=== PATIENT | male | born 1960 | race Caucasian/White ===

== ENCOUNTER 2020-09-08 10:14 | Outpatient (CLI) | payer OTHER, SELFPAY ==
[2020-09-08 11:27] LABS: Alanine Aminotransferase 14 U/L (4-50); Albumin Level 3.6 g/dL (3.5-5.1); Alkaline Phosphatase 53 U/L (38-126); Anion Gap 0 mmol/L (8-16); Aspartate Amino Transferase 25 U/L (17-59); Bilirubin,Total 0.5 mg/dL (0.2-1.3); Blood Urea Nitrogen 15 mg/dL (9-20); Calcium 8.4 mg/dL (8.4-10.2); Carbon Dioxide 32 mmol/L (22-30); Chloride 104 mmol/L (98-107); Cholesterol 168 mg/dL (0-200); Estimated Glomerular Filt Rate > 60; Glucose 89 mg/dL (75-110); HDL Direct 55 mg/dL; Potassium 4.5 mmol/L (3.4-5.0); Sodium 136 mmol/L (137-145); Triglycerides 77 mg/dL (<150)
[2020-09-08 11:39] LABS: LDL Cholesterol Direct 86 mg/dL
[2020-09-08 11:53] LABS: Free T4 Free Thyroxine 0.85 ng/mL (0.78-2.19)
[2020-09-08 11:58] LABS: Prostate Specific Antigen < 0.1 ng/mL (< OR = 4.0)
== END 2020-09-08 10:15 | disposition home or self-care (01) ==
PROVIDERS: PCP Family Medicine; Visit Provider Physician Assistant Medical
DX: E27.40 Unspecified adrenocortical insufficiency (principal); E03.9 Hypothyroidism, unspecified; Z13.220 Encounter for screening for lipoid disorders; Z12.5 Encounter for screening for malignant neoplasm of prostate
CPT/HCPCS: 36415; 80053; 80061; 84153; 84439; 84443; G0103

== ENCOUNTER 2021-03-19 14:23 | Outpatient (CLI) | payer OTHER, SELFPAY ==
[2021-03-19 15:07] LABS: Anion Gap -1 mmol/L (8-16); Blood Urea Nitrogen 22 mg/dL (9-20); Calcium 8.8 mg/dL (8.4-10.2); Carbon Dioxide 34 mmol/L (22-30); Chloride 104 mmol/L (98-107); Estimated Glomerular Filt Rate > 60; Glucose 77 mg/dL (75-110); Potassium 4.1 mmol/L (3.4-5.0); Sodium 137 mmol/L (137-145)
[2021-03-19 17:02] LABS: Free T4 Free Thyroxine 0.91 ng/mL (0.78-2.19)
== END 2021-03-19 14:24 | disposition home or self-care (01) ==
LOC: ANHLAB 14:25
PROVIDERS: PCP Family Medicine; Visit Provider Internal Medicine Endocrinology, Diabetes & Metabolism
DX: E03.9 Hypothyroidism, unspecified (principal); E27.40 Unspecified adrenocortical insufficiency
CPT/HCPCS: 36415; 80048; 84439; 84443

== ENCOUNTER 2021-06-08 20:36 | Emergency (ER) | payer OTHER, SELFPAY ==
[2021-06-08 20:47] VITALS: BP 150/86; PULSE 81; RESP 20; TEMP 37.1; O2SAT 99
--- NOTE | 2021-06-08 21:42 | PC.NURSE ---
Pt to desk stating he no longer wishes to be seen. Pt walked from department with a steady gait.
== END 2021-06-08 21:42 | disposition left against medical advice (07) ==
LOC: ANHED 21:52
DX: T63.301A Toxic effect of unspecified spider venom, accidental (unintentional), initial encounter (principal)
CPT/HCPCS: 99199

== ENCOUNTER 2022-05-25 11:04 | Outpatient (CLI) | payer OTHER, SELFPAY ==
--- NOTE | ~2022-05-25 | XR_ITS ---
EXAMINATION: XR chest 2V 05/25/2022 11:21 INDICATION: Cough PROCEDURE: 2 view chest COMPARISON: 03/03/2017 FINDINGS: The lungs are clear. The cardiomediastinal silhouette is within normal limits. There are no pleural effusions. There is no pneumothorax suspected. IMPRESSION: 1: NO ACUTE CARDIOPULMONARY DISEASE. Reviewed, dictated and finalized at location A.
[2022-05-25 11:42] LABS: Alanine Aminotransferase 25 U/L (6-50); Albumin Level 3.9 g/dL (3.5-5.1); Alkaline Phosphatase 53 U/L (38-126); Anion Gap 2 mmol/L (8-16); Aspartate Amino Transferase 26 U/L (17-59); Bilirubin,Total 0.5 mg/dL (0.2-1.3); Blood Urea Nitrogen 20 mg/dL (9-20); Carbon Dioxide 30 mmol/L (22-30); Chloride 105 mmol/L (98-107); Cholesterol 161 mg/dL (0-200); Estimated Glomerular Filt Rate > 60; Glucose 87 mg/dL (65-110); HDL Direct 52 mg/dL; Potassium 4.2 mmol/L (3.4-5.0); Sodium 137 mmol/L (137-145); Triglycerides 55 mg/dL (<150)
[2022-05-25 11:53] LABS: LDL Cholesterol Direct 71 mg/dL
[2022-05-25 12:23] LABS: Free T4 Free Thyroxine 0.99 ng/mL (0.78-2.19); Vitamin D 25 Hydroxy 53.4 ng/mL
[2022-05-25 21:29] LABS: Prostate Specific Antigen < 0.1 ng/mL (< OR = 4.0)
== END 2022-05-25 11:05 | disposition home or self-care (01) ==
LOC: ANHLAB 11:06
PROVIDERS: PCP Family Medicine; Visit Provider Nurse Practitioner Family
DX: E56.9 Vitamin deficiency, unspecified (principal); E03.9 Hypothyroidism, unspecified; E27.40 Unspecified adrenocortical insufficiency; E83.119 Hemochromatosis, unspecified; Z13.220 Encounter for screening for lipoid disorders; Z12.5 Encounter for screening for malignant neoplasm of prostate; R05.9 Cough, unspecified
CPT/HCPCS: 36415; 71046; 80053; 80061; 82306; 84153; 84439; 84443; G0103

== ENCOUNTER 2022-07-05 09:16 | Outpatient (CLI) | payer OTHER, SELFPAY ==
[2022-07-05 09:38] LABS: Calcium 8.7 mg/dL (8.4-10.2)
[2022-07-05 10:09] LABS: Cortisol Random 0.16 ug/dL
[2022-07-08 21:17] LABS: Adrenocorticotropic Hormone <5 pg/mL (6-50)
== END 2022-07-05 09:17 | disposition home or self-care (01) ==
LOC: ANHLAB 09:17
PROVIDERS: Internal Medicine Endocrinology, Diabetes & Metabolism; PCP Family Medicine; Visit Provider Nurse Practitioner Family
DX: E03.9 Hypothyroidism, unspecified (principal); E83.51 Hypocalcemia
CPT/HCPCS: 36415; 82024; 82310; 82533

== ENCOUNTER 2022-09-16 18:33 | Emergency (ER) | payer OTHER, SELFPAY ==
[2022-09-16 18:45] VITALS: BP 112/75; PULSE 64; RESP 16; TEMP 37; O2SAT 97
[2022-09-16] MEDS: TETANUS,DIPHTHERIA,AC PERTUSSIS ADULT 0.5 ML (ADACEL) IM (19:10)
[2022-09-16] MEDS: LIDOCAINE HCL 1% LOCAL INJ 10 ML VIAL INFILTRATE (19:10)
--- NOTE | 2022-09-16 19:35 | ED.WOUNDLAC ---
HPI - Wound/Laceration General Chief Complaint: Wound/Laceration Stated Complaint: right knee injury Time Seen by Provider: 09/16/22 18:37 Source: patient and family Mode of arrival: ambulatory History of Present Illness HPI narrative: this is a 62-year-old gentleman that presents after he was working on deck and hit his right knee on a piece of board causing a gaping laceration about 3.5cm to his anterior right leg some minimal bleeding, the patient does have history of hemochromatosis. Otherwise has good range of motion no numbness or tingling. Onset (ago): hour(s) Extremity Location: Right: lower leg ( 3.5cm laceration gaping) Place: outdoors Patient tetanus UTD: No Context: accidental Related Data Home Medications Medication Instructions Recorded Confirmed omega-3 fatty acids 1,000 mg 1,000 mg PO DAILY 09/25/20 05/31/22 capsule (Fish Oil Concentrate) ascorbic acid (vitamin C) 500 mg 500 mg PO DAILY PRN 05/31/22 05/31/22 tablet,extended release Allergies Allergy/AdvReac Type Severity Reaction Status Date / Time No Known Allergies Allergy Mild Verified 05/31/22 11:23 Review of Systems Review of Systems: All systems reviewed & are unremarkable except as noted in HPI and below PMFSH Past Medical History Medical History BMI 26.0-26.9,adult Family History Family History Mother Hypertension Family history of type 2 diabetes mellitus Rheumatoid arthritis Father Family history of cardiovascular disease Family history of lung cancer Sibling Hypertension Thyroid activity decreased Social History Social History Smoking status: Never smoker Second hand tobacco smoke exposure: No Alcohol intake: current Substance use: current Substance use type: marijuana Additional occupation/education comments: [employer] Gender identity (if verbalized by the patient): Male Exam Const: General: healthy appearing, no acute distress and alert Nutritional Appearance: well nourished Limitations: no limitations HENMT: Head: normal to inspection Face/Nose/Sinus: Normal external nose present Eyes: Conjunctivae: conjunctivae normal EOM: EOMs intact bilaterally Direct Ophthalmoscopy: no photophobia Neck: Neck: normal visual inspection Chest: Chest palpation & inspection: normal inspection of the chest Resp: Effort & Inspection: normal respiratory effort Auscultation: clear to auscultation bilaterally Cardio: Rate: regular rate Rhythm: regular rhythm GI: GI Palp: Yes Soft to palpation Auscultation: normal bowel sounds Urinary Catheter: Urinary Catheter: patent and draining Back/Spine/Pelvis: Back: no CVA tenderness Skin: General skin exam: normal color Wounds: wounds noted Neuro: General: patient oriented x3 Cranial nerves: Yes Nystagmus not present Extrem: General: normal to inspection Psych: Mental Status: mental status grossly normal Affect: normal affect Course Course Emergency Course: Five sutures were placed anterior right knee laceration patient tolerated procedure well patient with a history of hemochromatosis and will give a dose of Augmentin and updated patient with his tetanus. Vital Signs Vital signs: Vital Signs Temperature 37.0 C 09/16/22 18:45 Pulse Rate 64 09/16/22 18:45 Respiratory Rate 16 09/16/22 18:45 Blood Pressure 112/75 09/16/22 18:45 Pulse Oximetry 97 09/16/22 18:45 Oxygen Delivery Room Air 09/16/22 18:45 Temperature 37.0 C 09/16/22 18:45 Pulse Rate 64 09/16/22 18:45 Respiratory Rate 16 09/16/22 18:45 Blood Pressure 112/75 09/16/22 18:45 Pulse Oximetry 97 09/16/22 18:45 Oxygen Delivery Room Air 09/16/22 18:45 Procedures Laceration Laceration 1: Date: 09/16/22 Site: lower extremity Side (If ap
[2022-09-16] MEDS: AMOXICILLIN/CLAVULANATE K 875-125 MG TAB 1 TABLET PO (19:42)
[2022-09-16] MEDS: NEOMYCIN/POLYMYXIN/BACITRACIN OINTMENT PACKET 1 PACKET TOPICAL (19:46)
[2022-09-16 19:49] VITALS: PULSE 60; RESP 16; TEMP 37; O2SAT 99
== END 2022-09-16 19:55 | disposition home or self-care (01) ==
PROVIDERS: Emergency Provider Emergency Medicine
DX: S81.811A Laceration without foreign body, right lower leg, initial encounter (principal); W45.8XXA Other foreign body or object entering through skin, initial encounter
CPT/HCPCS: 12002; 90471; 90715; 99283; A9270

== ENCOUNTER 2023-01-17 11:58 | Outpatient (CLI) | payer OTHER, SELFPAY ==
[2023-01-17 12:42] LABS: Anion Gap 2 mmol/L (8-16); Blood Urea Nitrogen 18 mg/dL (9-20); Calcium 8.7 mg/dL (8.4-10.2); Carbon Dioxide 31 mmol/L (22-30); Chloride 101 mmol/L (98-107); Estimated Glomerular Filt Rate > 60; Glucose 86 mg/dL (65-110); Sodium 134 mmol/L (137-145)
[2023-01-17 13:03] LABS: Free T4 Free Thyroxine 1.01 ng/mL (0.78-2.19)
== END 2023-01-17 11:59 | disposition home or self-care (01) ==
LOC: ANHLAB 11:59
PROVIDERS: Visit Provider Internal Medicine Endocrinology, Diabetes & Metabolism
DX: E03.9 Hypothyroidism, unspecified (principal); E27.40 Unspecified adrenocortical insufficiency
CPT/HCPCS: 36415; 80048; 84439; 84443

== ENCOUNTER 2024-07-05 16:35 | Outpatient (CLI) | payer MEDICARE, OTHER, SELFPAY ==
[2024-07-05 17:37] LABS: Free T4 Free Thyroxine 0.86 ng/mL (0.78-2.19)
[2024-07-05 17:44] LABS: Cortisol Baseline < 0.16 ug/dL
[2024-07-09 21:33] LABS: Adrenocorticotropic Hormone <5 pg/mL (6-50)
== END 2024-07-05 16:36 | disposition home or self-care (01) ==
PROVIDERS: PCP Family Medicine; Visit Provider Internal Medicine Endocrinology, Diabetes & Metabolism
DX: E27.40 Unspecified adrenocortical insufficiency (principal); E03.9 Hypothyroidism, unspecified
CPT/HCPCS: 36415; 82024; 82533; 84439; 84443

== ENCOUNTER 2024-12-15 12:24 | Outpatient (CLI) | payer MEDICARE, OTHER, SELFPAY ==
--- OUTSIDE RECORDS SUMMARY | 2024-12-15 12:28 | XMS_ITS ---
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 Other Current Plans IV MAINTENANCE THERAPY PLAN* Plan Start Date:02/14/2019 Plan Provider:Noman Torres DO Linked Problems Hemochromatosis associated w ith mutation in HFE gene (HCC) Treatment Medications No medications scheduled. THERAPEUTIC PHLEBOTOMY* Plan Start Date:04/18/2018 Plan Provider:Noman Torres DO Linked Problems Hemochromatosis associated w ith mutation in HFE gene (HCC) Treatment Medications No medications scheduled. Past Plans Radiation Treatments * No radiation treatments are documented for this patient in [facility]. Treatments may have been administered in another system.
--- OUTSIDE RECORDS SUMMARY | 2024-12-15 12:28 | XMS_ITS | Clinical Summary ---
Author Organization [facility] Address [address] [place] [address] Care Team Providers Care Rail Splitter Name Role Phone Carlitos Jaeger MD Primary Care Provider Noman Torres DO Unavailable [phone] Allergies Active Allergy Reactions Criticality Noted Date Comments No Known Allergies Other (See comments) Low Reaction: Medications omega 7-cwj-xcd-fish oil 100-160-1,000 mg capsule Active glucosamine-cho ndroitin 500-400 mg capsule Take by mouth. Activ e polyethylene glycol (MIRALAX) 17 gram/dose powder Mix the entire bottle with 64 oz of a clear liquid. Use as directed by the office for colonoscopy prep. 7 Active sildenafiL (VIAGRA) 100 mg tablet TAKE ONE TABLET BY MOUTH 1 HOUR BEFORE NEEDED 4 Active predniSONE (DELTASONE) 2.5 mg tablet Take by mouth daily. 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 Thoracic outlet syndrome 12/30/2011 Encounters Date Type Department Care Team Description 12/10/2024 Telephone [facility] Oncology [facility] [facility] [address] [place] [address] Amaya Valdez RN 11/14/2024 Telephone [facility] Oncology [address] [facility] [address] [place] [address] Suzanne Lozano from Last 3 Months Immunizations Name Administration Dates Next Due Td, adsorbed 08/20/2009 Surgical History Surgery Date Site/Laterality Comments HIP SURGERY Hip Surgery - (Added by TW Conv) RADICAL PROSTATECTOMY Prostatectomy Radical - (Added by TW Conv) COLONOSCOPY PROSTATE SURGERY US GUIDED BIOPSY LIVER 04/06/2017 N/A Medical History Medical History Date Comments Aftercare following joint re placement surgery Aftercare following joint re placement - (Added by TW Conv) Injury of shoulder or upper arm Shoulder injury - (Added by TW Conv) Personal history of diseases of the blood and blood-forming organs and certain disorders involving the immune mechanism History of an emia - (Added by TW Conv) Abnormal weight loss Weight loss - (Added by TW Conv) Hemochromatosis Family History Medical History Relation Name Comments Coronary artery disease Father CAD (coronary artery disease) - (Added by TW Conv) Heart disease Father Heart Disease - (Added by TW Conv) Lung cancer Father Family history of lung cancer - (Added by TW Conv) Diabetes Mother Family history of diabetes mellitus - (Added by TW Conv) Diabetes Other 1 Diabetes Mellit us - (Added by TW Conv) Prostate cancer Other 2 Prostate Can cer - Relation: Uncle (Added by TW Conv) Prostate cancer Other 3 Prostate Can cer - (Added by TW Conv) Heart disease Other 4 Heart Disease - (Added by TW Conv) Hypertension Other 5 Family history of hypertension - (Added by TW Conv) Relation Name Status Comments Father Mother Other 1 Other 2 Other 3 Other 4 Other 5 Social History Tobacco Use Types Packs/Day Years Used Date Smoking Tobacco: Never Smokeless Tobacco: Never Alcohol Use Standard Drinks/Week Comments No 0 (1 standard drink = 0.6 oz pur e alcohol) Sex and Gender Information Value Date Recorded Sex Assigned at Not on file Legal Sex Male 12:17 AM POLICE CAPTAIN Gender Identity Male 04/18/2018 3:04 PM CDT Sexual Orientation Straight 12/15/2023 6: 31 PM POLICE CAPTAIN Obstetrics History Last Filed Vital Signs Vital Sign Reading Time Taken Comments Blood Pressure 134/81 12/12/2023 9:03 AM POLICE CAPTAIN Pulse 55 12/12/2023 9:03 AM POLICE CAPTAIN Temperature 36.7 C (98 F) 12/12/2023 9:03 AM POLICE CAPTAIN Respiratory Rate 18 12/12/2023 9:03 AM POLICE CAPTAIN Oxygen Saturation 98% 12/12/2023 9:03 AM POLICE CAPTAIN Inhaled Oxygen Concentration - - Weight 87.4 kg (192 lb 9.6 oz) 12/12/2023 9:03 A M POLICE CAPTAIN Height 180.3 cm (5' 11 ) 12/12/2023 9:03 AM POLICE CAPTAIN Body Mass Index 26.86 12/12/2023 9:03 AM POLICE CAPTAIN Plan of Treatment Health Maintenance Due Date Last Done Comments Colon Cancer Screening-Colonoscopy 1958 Depression Screening 1958 Fall Risk Assessment 1960 Hepatitis C Screening 1960 Prostate Cancer Screening-PSA 1958 Hepatitis B Screening 1976 Zoster Vaccine (1 of 2) 2008 Abdominal Aortic Aneurysm (AAA) Screen 2023 Pneumococcal vaccine 65+ (1 of 1 - PCV) 2023 Well Visit 65+ 2023 Influenza Vaccine (#1) 2024 DTaP/Tdap/Td Vaccine (2 - Td or Tdap) 09/16/203208/2022, 08/20/2009 Insurance [employer] MEDICARE [facility] MEDICARE Care Teams Rail Splitter Relationship Specialty Start Date End Date Carlitos Jaeger MD PCP - General 02/17/18 Noman Torres DO [address] [place] [address] Medical Oncologist/Thread Grinder Hematology and Oncology 06/21/18
--- OUTSIDE RECORDS SUMMARY | 2024-12-15 12:28 | XMS_ITS | Referral Summary ---
Author Organization [facility] Address [address] [place] [address] Care Team Providers Care Secretary To Board Of Commissioners Name Role Phone Carlitos Jaeger MD Primary Care Provider [phone] Noman Torres DO Unavailable Encounters Date Type Department Care Team Description 12/10/2024 Telephone [facility] Oncology [address] [place] [address] [address] [place] [address] Amaya Valdez RN 11/14/2024 Telephone [facility] Oncology [address] [place] [address] [address] [place] [address] Suzanne Lozano from Last 3 Months Allergies Active Allergy Reactions Criticality Noted Date Comments No Known Allergies Other (See comments) Low Reaction: Medications omega 9-hiy-okd-fish oil 100-160-1,000 mg capsule Active glucosamine-cho ndroitin [...] prostate 09/04/2013 Overview (02/16/2018): Description: Lap RRP 12/26/2013--[place]: 3+3=6--Margins: Negative--Stage: T2/NO/MX 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 Thoracic outlet syndrome 12/30/2011 Immunizations Name Administration Dates Next Due Td, adsorbed 08/20/2009 Social History Tobacco Use Types Packs/Day Years Used Date Smoking Tobacco: Never Smokeless Tobacco: Never Alcohol Use Standard Drinks/Week Comments No 0 (1 standard drink = 0.6 oz pur e alcohol) Sex and Gender Information Value Date Recorded Sex Assigned at Not on file Legal Sex Male 12:17 AM PRINTING PRESS OPERATOR Gender Identity Male 04/18/2018 3:04 PM CDT Sexual Orientation Straight 12/15/2023 6: 31 PM PRINTING PRESS OPERATOR Last Filed Vital Signs Vital Sign Reading Time Taken Comments Blood Pressure 134/81 12/12/2023 9:03 AM PRINTING PRESS OPERATOR Pulse 55 12/12/2023 9:03 AM PRINTING PRESS OPERATOR Temperature 36.7 C (98 F) 12/12/2023 9:03 AM PRINTING PRESS OPERATOR Respiratory Rate 18 12/12/2023 9:03 AM PRINTING PRESS OPERATOR Oxygen Saturation 98% 12/12/2023 9:03 AM PRINTING PRESS OPERATOR Inhaled Oxygen Concentration - - Weight 87.4 kg (192 lb 9.6 oz) 12/12/2023 9:03 A M PRINTING PRESS OPERATOR Height 180.3 cm (5' 11 ) 12/12/2023 9:03 AM PRINTING PRESS OPERATOR Body Mass Index 26.86 12/12/2023 9:03 AM PRINTING PRESS OPERATOR Plan of Treatment Not on file Insurance FOR LIFE MEDICARE [facility] MEDICARE Care Teams Secretary To Board Of Commissioners Relationship Specialty Start Date End Date Carlitos Jaeger MD PCP - General 02/17/18 Noman Torres DO [address] [place] [id number] Medical Oncologist/Experimental Physicist Hematology and Oncology 06/21/18
--- OUTSIDE RECORDS SUMMARY | 2024-12-15 12:29 | XMS_ITS | Encounter Summary ---
Author Organization [facility] Address [address] [place] [address] Care Team Providers Care Property Disposal Manager Name Role Phone Jairo Rivera MD Primary Care Provider [phone] Encounter Details Date Type Department Care Team (Late st Contact Info) Description 07/05/2023 Lab Requisition [facility] - DermPath Lab [address] [place] [address] Carlitos Jaeger MD [address] [place] [address] Social History Tobacco Use Types Packs/Day Years Used Date Smoking Tobacco: Never Assessed Sex and Gender Information Value Date Recorded Sex Assigned at Not on file Gender Identity Not on file Sexual Orientation Not on file documented as of this encounter Plan of Treatment Not on file documented as of this encounter Procedures Procedure Name Priority Date/Time Associated Diagnosis Comments DERMATOPATHOLOGY Routine 07/04/2023 12:0 0 AM CDT documented in this encounter Results * DERMATOPATHOLOGY (07/04/2023 12:00 AM CDT) Case Report Dermatopathology Report Case: [id number] Authorizing Provider: Carlitos Jaeger MD Collected: 07/04/2023 12:00 AM Ordering Location: [facility] DermPath Lab Received: 07/05/2023 12:29 PM Pathologist: Wilma Shaffer MD Specimen: Skin, left neck 08/30/202 3 12:47 PM CDT DERMATOPATHOLOGY LABORATORY Final Diagnosis Specimen A. SKIN, left neck: VERRUCA VULGARIS (B07.8) PRESENT AT MARGIN 3 12:47 PM CDT DERMATOPATHOLOGY LABORATORY Clinical History Changing Lesion. Check Margin 12:47 PM CDT DERMATOPATHOLOGY LABORATORY Gross Description Specimen A: Received is one formalin filled container labeled with the patient's name and designated left neck. The specimen consists of a shave biopsy measuring 4x4x1 mm. Jar 0. 12:47 PM CDT DERMATOPATHOLOGY LABORATORY Microscopic Description Specimen A. SKIN, left neck: There is digitated epidermal hyperplasia, hypergranulosis, vacuolated granular layer cells, and compact hyperorthokeratosis . This lesion is present at the margin of the specimen. 12:47 PM CDT DERMATOPATHOLOGY LABORATORY Disclaimer An external and internal positive and negative controls are appropriate for the histochemical, immunohistochemical and immunofluorescence stain(s) in this case (if any), except where stated explicitly. The performance characteristics of the stain(s) cited in this report were developed and its performance characteristic determined by the Dermatopathology Laboratory at [facility], directed by Dr. Donovan Zuleta. These tests need not be, and therefore are not, approved by the [place] Food and Drug Administration. The tests are used for clinical purposes. Billing Codes Specimen Charges Stain Charges 10840 1 12:47 PM CDT DERMATOPATHOLOGY LABORATORY Embedded Images 12:47 PM CDT DERMATOPATHOLOGY LABORATORY Pathology/Cytolog y TISSUE SPECIMEN FROM SKIN / Unknown 07/04/2023 07/05/2023 12:29 PM CDT Carlitos Jaeger MD LAB - PATHOLOGY/CYTO LOGY ORDERABLES DERMATOPATHOLOGY LABORATORY [facility] - Department of Dermatology [address] [phone] documented in this encounter Visit Diagnoses Not on filedocumented in this encounter Care Teams Property Disposal Manager Relationship Specialty Start Date End Date Jairo Rivera MD [address] [place] [id number] PCP - General 11/19/11 documented as of this encounter
--- OUTSIDE RECORDS SUMMARY | 2024-12-15 12:29 | XMS_ITS | Patient Health Summary ---
Author Organization [facility] Address [address] [place] [address] Care Team Providers Care Weighbridge Operator Name Role Phone Jairo Rivera MD Primary Care Provider [phone] Note from [facility],non-owned Affiliates and Associated Physician Practices is amultiple site organization consisting of ambulatory clinics and hospital sitesin [place], [place], [place] and [place]. This disclosure is being madepursuant to the Care Everywhere program and may not contain all information available regarding this patient. Last updated 18.[facility] Social History Tobacco Use Types Packs/Day Years Used Date Smoking Tobacco: Never Assessed Sex and Gender Information Value Date Recorded Sex Assigned at Not on file Gender Identity Not on file Sexual Orientation Not on file Procedures * DERMATOPATHOLOGY(Performed 07/04/2023) Results * DERMATOPATHOLOGY (07/04/2023 12:00 AM CDT) Case Report Dermatopathology Report Case: [id number] Authorizing Provider: Carlitos Jaeger MD Collected: 07/04/2023 12:00 AM Ordering Location: [facility] DermPath Lab Received: 07/05/2023 12:29 PM Pathologist: Wilma Shaffer MD Specimen: Skin, left neck 12:47 PM CDT DERMATOPATHOLOGY LABORATORY Final Diagnosis Specimen A. SKIN, left neck: VERRUCA VULGARIS (B07.8) PRESENT AT MARGIN 12:47 PM CDT DERMATOPATHOLOGY LABORATORY Clinical History [...] characteristic determined by the Dermatopathology Laboratory at [facility], directed by Dr. Donovan Zuleta. These tests need not be, and therefore are not, approved by the [place] Food and Drug Administration. The tests are used for clinical purposes. Billing Codes Specimen Charges Stain Charges 50137 1 12:47 PM CDT DERMATOPATHOLOGY LABORATORY Embedded Images 12:47 PM CDT DERMATOPATHOLOGY LABORATORY Pathology/Cytolog y TISSUE SPECIMEN FROM SKIN / Unknown 07/04/2023 07/05/2023 12:29 PM CDT Carlitos Jaeger MD LAB - PATHOLOGY/CYTO LOGY ORDERABLES DERMATOPATHOLOGY LABORATORY [facility] - Department of Dermatology [address] [phone] Care Teams Weighbridge Operator Relationship Specialty Start Date [place] [address] PCP - General 11/19/11
--- OUTSIDE RECORDS SUMMARY | 2024-12-15 12:29 | XMS_ITS | Clinical Summary ---
Author Organization [facility] Address [address], [facility] [address] [place] [address] Phone Care Team Providers Care Acting Professor Name Role Phone Carlitos Jaeger MD Primary Care Provider [phone] Roel Dodson DO Unavailable Allergies No known active allergies Medications polyethylene glycol (MIRALAX) Powder Mix the entire bottle with 64 oz of a clear liquid. Use as directed by the office for colonoscopy prep. 255 g 0 7 Active glucosamine-cho ndroitin 500-400 MG Capsule Take 2 Caps by mouth daily. Active Family History Medical History Relation Name Comments Heart Disease Father Lung Cancer Father Diabetes Mother Hypertension Mother Rheumatoid Arthritis Mother Breast Cancer Other Grandmother Diabetes Other Aunt Prostate Cancer Other Uncle Stroke Other Uncle Relation Name Status Comments Father Mother Other Social History Tobacco Use Types Packs/Day Years Used Date Smoking Tobacco: Former Cigarettes 1 2 Smokeless Tobacco: Never Alcohol Use Standard Drinks/Week Comments Yes 3 (1 standard drink = 0.6 oz pur e alcohol) Sex and Gender Information Value Date Recorded Sex Assigned at Not on file Legal Sex Male 10:56 AM CDT Gender Identity Not on file Sexual Orientation Not on file Plan of Treatment Health Maintenance Due Date Last Done Comments TdaP Immunization 1958 Cologuard 2008 Immunochemical Fecal Occult Blood 2008 Pneumococcal Immunization (5 0+ years) (1 of 1 - PCV) 2008 Zoster Immunization (1 of 2) 2008 Influenza Immunization (#1) 2024 SARS-COV-2 Immunization ( season) 2024 Colonoscopy 02/24/2027 02/24/2017 Colorectal Cancer Screening 02/24/2027 Respiratory Syncytial Virus (RSV) Immunization (Adult) (1 - 1-dose 75+ series) 2033 02/24/2017 Hepatitis C Virus (HCV) Screening Completed 03/03/2017, 03/03/2017 Hepatitis B Immunization Aged Out No longer eligible based on patient's age to complete this topic Meningococcal Immunization (ACWY) Aged Out No longer eligible b ased on patient's age to complete this topic Rotavirus Immunization Aged Out No lo nger eligible based on patient's age to complete this topic Procedures Procedure Name Priority Date/Time Associated Diagnosis Comments HEPATITIS PANEL ACUTE (AHP) Routine 03/03/2017 HM COLONOSCOPY Routine 02/24/2017 from Last 3 Months or Most Recently Relevant to Health Maintenance Results * HEPATITIS PANEL ACUTE (AHP) (03/03/2017) Blood specimen (specimen) us Roel Dodson DO HEMATOLOGY ORDERABLES Final Res ult * HM COLONOSCOPY (02/24/2017) Carlitos Jaeger MD PROCEDURE/MINOR SURGICAL ORDE RABLES Final Result from Last 3 Months or Most Recently Relevant to Health Maintenance Care Teams Acting Professor Relationship Specialty Start Date End Date Carlitos Jaeger MD [address] [address] PCP - General Family Medicine 02/25/17 Roel Dodson DO [address] [address] Gastroenterology 02/25/17
--- OUTSIDE RECORDS SUMMARY | 2024-12-15 12:29 | XMS_ITS | CONTINUITY OF CARE DOCUMENT ---
Author Name zach serrano Address Unknown Organization [facility] Address [address] [place] [address] [address] [place] [address] Phone [phone] Care Team Providers Care Aquatic Biologist Name Role Phone Lucien Haynes MD Unavailable [phone] Noman Torres DO Unavailable [phone] LUCRECIA ADKINS, HELLEN F Unavailable [phone] INSURANCE PROVIDERS Payer name Policy type / Coverage type [facility]ol [facility] green party ID [facility] [employer] 003 [id number]
--- OUTSIDE RECORDS SUMMARY | 2024-12-15 12:29 | XMS_ITS | Clinical Summary ---
Author Organization [facility] Address [address] [place] [address] Care Team Providers Care Detective Investigator Name Role Phone Jairo Rivera MD Primary Care Provider [phone] Source Comments [facility],non-owned Affiliates and Associated Physician Practices is amultiple site organization consisting of ambulatory clinics and hospital sitesin [place], [place], [place]. This disclosure is being madepursuant to the Care Everywhere program and may not contain all information available regarding this patient. Last updated 18.[facility] [employer] Social History Tobacco Use Types Packs/Day Years Used Date Smoking Tobacco: Never Assessed Sex and Gender Information Value Date Recorded Sex Assigned at Not on file Gender Identity Not on file Sexual Orientation Not on file Plan of Treatment Health Maintenance Due Date Last Done Comments COLOGUARD (AGES 45-75) - COL ON CA SCREENING 1958 COLON MONITORING 1958 COLONOSCOPY - COLON CA SCREENING 1958 CT COLONOGRAPHY - COLON CA SCREENING 1958 Colorectal Cancer Screening 1958 FIT - COLON CA SCREENING 1958 FLEX SIG - COLON CA SCREENING 1958 LIPID TESTING 1958 HEPATITIS C SCREENING 08/31/1976 DTAP/TDAP/TD VACCINES (1 - Tdap) 1977 PNEUMOCOCCAL VACCINE 50+ (1 of 1 - PCV) 2008 ZOSTER VACCINE (1 of 2) 2008 COVID-19 VACCINE ( - 2023-2 5 season) 2024 INFLUENZA VACCINE (#1) 2024 DEPRESSION SCREENING 11/07/2024 Respiratory Syncytial Virus (RSV) Vaccine Pt: or over 60 yrs (1 - 1-dose 75+ series) 2033 HEPATITIS B VACCINE Aged Out No longe r eligible based on patient's age to complete this topic HIB VACCINE Aged Out No longer eligi ble based on patient's age to complete this topic HPV VACCINE Aged Out No longer eligi ble based on patient's age to complete this topic MENINGOCOCCAL (Group B) VACCINE Aged Out No longer eligible based on patient's age to complete this topic MENINGOCOCCAL VACCINE Aged Out No basilia princess eligible based on patient's age to complete this topic Care Teams Detective Investigator Relationship Specialty Start Date End Date Jairo Rivera MD [address] [place] [id number] PCP - General 11/19/11
--- OUTSIDE RECORDS SUMMARY | 2024-12-15 12:29 | XMS_ITS | Referral Summary ---
Author Organization [facility] Address [address] [address] Care Team Providers Care Counter Cutter Name Role Phone Jairo Rivera MD Primary Care Provider [phone] Source Comments [facility],non-owned Affiliates and Associated Physician Practices is amultiple site organization consisting of ambulatory clinics and hospital sitesin [place] and [place]. This disclosure is being madepursuant to the Care Everywhere program and may not contain all information available regarding this patient. Last updated 18.[facility] Social History Tobacco Use Types Packs/Day Years Used Date Smoking Tobacco: Never Assessed Sex and Gender Information Value Date Recorded Sex Assigned at Not on file Gender Identity Not on file Sexual Orientation Not on file Plan of Treatment Not on file Care Teams Counter Cutter Relationship Specialty Start Date [place] [id number] PCP - General 11/19/11
[2024-12-15 12:48] LABS: Basophils Percent Auto 0.4 % (0.2-1.2); Eosinophils Absolute Auto 0.3 K/mm3 (0-0.3); Hematocrit 43.2 % (42.0-52.0); Hemoglobin 14.8 g/dL (14.0-18.0); Immature Granulocyte Absolute 0.03 K/mm3 (0.00-0.031); Immature Granulocyte Percent A 0.3 % (0-0.5); Lymphocytes Absolute Auto 1.02 K/mm3 (0.9-3.2); Lymphocytes Percent Auto 11.3 % (18.3-44.2); Mean Corpuscular HGB Conc 34.3 g/dl (32-36); Mean Corpuscular Hemoglobin 31.8 pg (26-34); Mean Corpuscular Volume 92.7 fl (80-100); Mean Platelet Volume 9.7 fl (7.4-10.4); Monocytes Absolute Auto 0.4 K/mm3 (0.1-0.6); Monocytes Percent Auto 4.8 % (2.6-8.5); Neutrophils Absolute Auto 7.3 K/mm3 (1.3-6.7); Neutrophils Percent Auto 80.2 % (45.5-73.1); Platelet Count Result 277 k/mm3 (150-375); Red Blood Count 4.66 M/mm3 (4.6-6.20); Red Cell Distribution Width 11.6 % (11.5-14.5); White Blood Count 9.1 K/mm3 (4.5-10.0)
[2024-12-15 13:01] LABS: Iron 129 ug/dL (49-181)
[2024-12-15 13:10] LABS: Percent Iron Saturation 64 % (20-50)
[2024-12-15 13:19] LABS: Free T4 Free Thyroxine 1.01 ng/dL (0.78-2.19)
[2024-12-15 13:28] LABS: Cortisol Baseline 3.58 ug/dL
[2024-12-16 08:43] LABS: DHEA-Sulfate 25 mcg/dL (20-217)
[2024-12-19 21:33] LABS: Adrenocorticotropic Hormone <5 pg/mL (6-50)
== END 2024-12-15 12:25 | disposition home or self-care (01) ==
PROVIDERS: PCP Internal Medicine Medical Oncology; Visit Provider Internal Medicine Endocrinology, Diabetes & Metabolism
DX: E03.9 Hypothyroidism, unspecified (principal); E27.40 Unspecified adrenocortical insufficiency; E83.110 Hereditary hemochromatosis
CPT/HCPCS: 36415; 82024; 82533; 82627; 82728; 83540; 83550; 84439; 84443; 85025

== ENCOUNTER 2025-01-04 17:51 | Outpatient (CLI) | payer MEDICARE, OTHER, SELFPAY ==
[2025-01-04 18:16] LABS: Basophils Percent Auto 0.4 % (0.2-1.2); Eosinophils Absolute Auto 0.1 K/mm3 (0-0.3); Eosinophils Percent Auto 1.7 % (0-4.4); Hematocrit 40.7 % (42.0-52.0); Hemoglobin 13.8 g/dL (14.0-18.0); Immature Granulocyte Absolute 0.02 K/mm3 (0.00-0.031); Immature Granulocyte Percent A 0.3 % (0-0.5); Lymphocytes Absolute Auto 1.32 K/mm3 (0.9-3.2); Lymphocytes Percent Auto 19.1 % (18.3-44.2); Mean Corpuscular HGB Conc 33.9 g/dl (32-36); Mean Corpuscular Hemoglobin 31.5 pg (26-34); Mean Corpuscular Volume 92.9 fl (80-100); Mean Platelet Volume 9.9 fl (7.4-10.4); Monocytes Absolute Auto 0.5 K/mm3 (0.1-0.6); Monocytes Percent Auto 6.5 % (2.6-8.5); Platelet Count Result 258 k/mm3 (150-375); Red Blood Count 4.38 M/mm3 (4.6-6.20); Red Cell Distribution Width 11.9 % (11.5-14.5); White Blood Count 6.9 K/mm3 (4.5-10.0)
[2025-01-04 18:37] LABS: Iron 164 ug/dL (49-181)
[2025-01-04 18:46] LABS: Percent Iron Saturation 83 % (20-50)
== END 2025-01-04 17:52 | disposition home or self-care (01) ==
PROVIDERS: PCP Internal Medicine Medical Oncology; Visit Provider Internal Medicine Medical Oncology
DX: E83.110 Hereditary hemochromatosis (principal)
CPT/HCPCS: 36415; 82728; 83540; 83550; 85025